=== PATIENT | male | born 1955 | race Caucasian/White ===

== ENCOUNTER 2020-12-24 06:31 | Day surgery (SDC) | payer BC ==
[~2020-12-24] VITALS: Ht 182.9 cm; Wt 81.6 kg
--- NOTE | ~2020-12-24 | OP ---
PATIENT NAME: ZENON CONTRERAS MEDICAL RECORD: [id number] :59 LOCATION:[facility] ADMISSION DATE: SURGEON: KATIE STEWART MD DATE OF OPERATION: 12/24/2020 PREOPERATIVE DIAGNOSIS: Tibial tubercle bursitis, left knee. POSTOPERATIVE DIAGNOSIS: Tibial tubercle bursitis, left knee. PROCEDURE PERFORMED: Excision of left knee bursitis. INDICATIONS FOR THE PROCEDURE: Mr. Contreras is a 65-year-old male with history of a swollen bursa over the tibial tubercle of the left knee. He has done a lot of work on his hands and knees for years and he has had intermittent swelling, but developed significant swelling a few months ago. He attempted aspiration with his primary care physician, but the fluid returned and is now very tender and symptomatic. He has not had any evidence of infection. He would like to proceed with surgery for excision of bursa, left knee. Risks, benefits and alternatives of surgery were discussed with the patient and consent was obtained. DESCRIPTION OF THE PROCEDURE: The patient was met in the holding area where his identity and confirmation of procedure was performed. Left lower extremity was marked. He was taken to the operating room where he was placed supine on the operating table and anesthesia was administered. Tourniquet was applied to the left thigh and the left leg was prepped and draped in a sterile fashion. The patient received preoperative antibiotics and timeout was performed before initiating the case. On initiation of the case, the leg was exsanguinated and the tourniquet was raised. Total tourniquet time was 36 minutes. An elliptical incision was made over the anterior knee over the bursa. We incised through the skin and subcutaneous tissues to the bursa sac. We then used scissors to dissect the sac away from the subcutaneous skin. This tissue was very thick. Once the sac was isolated to the tibial tubercle and patellar tendon, it was transected at its base. I did enter the sac anteriorly and there was a small amount of serosanguineous fluid and a fibrous piece of tissue within the sac. The sac itself was also very fibrous, thick tissue. It was excised at its base and then the remaining edges were trimmed until we had complete excision of the bursa and sac. The tissues were immediately over the tibial tubercle. The patellar tendon was visualized and intact. There was still some retinacular tissues remaining and these were reapproximated with 3-0 Vicryl suture. The wound was irrigated thoroughly with saline before any closure. We then reapproximated those retinacular tissues. The subcutaneous tissues were infiltrated with 0.25% Marcaine with epinephrine. The tissues were then reapproximated and the skin edges were again trimmed until we were pleased with its tensioning and closure. We then closed the subcutaneous tissue with 2-0 Vicryl and the skin was closed with nylon. A sterile dressing was placed. The patient was turned back over to anesthesia where he was awakened, extubated, and taken to recovery room in stable condition. POSTOPERATIVE PLAN: The patient is going to return home with his family today. He may be weightbearing as tolerated on the left knee and perform range of motion as tolerated, but still needs to avoid a lot of upright strenuous physical activity for the next couple of weeks. We will see him back in clinic in 2 weeks. OPERATIVE REPORT [id number] ZENON CONTRERAS COMPLICATIONS: None. ESTIMATED BLOOD LOSS: 5 mL. ANESTHESIA: General LMA. TRANSINT:[id number] Voice Confirmation ID: [id number] DOCUMENT ID: [id number] KATIE STEWART MD CC: [id number] DICTATION DATE: 12/24/20 1051 FACILITY REHAB DIRECTOR: 12/24/20 1211 [address] [facility] [id number] [place] [address]
[~2020-12-24 06:31] MED LIST: OXYCODONE HCL10 MG PO; ZESTRIL40 MG PO
[2020-12-24 07:49] VITALS: BP 177/109; Ht 182.9 cm; Wt 81.6 kg
--- NOTE | 2020-12-24 12:28 | NUR ---
DC INSTRUCTIONS GIVEN TO PT. STATES UNDERSTANDING. DC'D IV CATH FULLY INTACT. WAITING FOR DR. STEWART TO GIVE PT PAIN PRESCRIPTION AND TO RETURN TO [facility] FOR DC. WILL CONTINUE TO MONITOR.
--- NOTE | 2020-12-24 12:47 | NUR ---
SPOKE WITH DR. STEWART AND HE STATES THAT HE IS NOT ABLE TO WRITE ANOTHER PRESCRIPTION FOR PT.
--- NOTE | 2020-12-24 13:03 | NUR ---
PT LEFT UNIT VIA WC AT 1257
== END 2020-12-24 12:57 | disposition home or self-care (01) ==
LOC: D.OPS 06:31
PROVIDERS: ATTEND Orthopaedic Surgery
DX: M70.52 Other bursitis of knee, left knee (principal); M25.562 Pain in left knee